=== PATIENT | male | born 1940 | race Caucasian/White ===

== ENCOUNTER 2017-09-25 16:19 | Inpatient (IN) ==
[2017-09-25] MEDS ORDERED: NALOXONE 0.4 MG/ML INJECTION IVP ONE (16:28)
[2017-09-25] MEDS ORDERED: CEFEPIME 1 GM in NS 100 ML IV ONE (16:29)
[2017-09-25] MEDS: SALINE FLUSH 10ml SYRINGE IVF PRN (16:33)
--- NOTE | 2017-09-25 16:53 | Emergency Department Report ---
Altered Mental Status HPI - General Chief Complaint: Altered Mental Status Stated Complaint: Unresponsive Time Seen by Provider: 09/25/17 16:28 Source: patient, family, EMS, RN notes reviewed, old records reviewed Mode of arrival: EMS Limitations: no limitations - History of Present Illness HPI narrative: 77yo man is presented to the ER by EMS for evaluation of AMS. Pt was found down in his bathroom by a neighbor today. Pt was unresponsive, so EMS was called. EMS arrived and found the pt breathing, but unresponsive (even to sternal rub). MD complaint: altered mental status Onset (ago): unknown Severity: severe Consistency of symptoms: constant Context: cancer Treatments prior to arrival: IV fluid - Related Data Home Medications Medication Instructions Recorded Confirmed Amlodipine [Norvasc] 5 mg PO DAILY 09/25/17 09/25/17 Aspirin [Adult Aspirin] 81 mg PO DAILY 09/25/17 09/25/17 Budesonide/Formoterol Fumarate 1 puff INH DAILY 09/25/17 09/25/17 [Symbicort 160-4.5 Mcg Inhaler] Finasteride [Proscar] 5 mg PO DAILY 09/25/17 09/25/17 Tamsulosin [Flomax] 0.4 mg PO HS 09/25/17 09/25/17 Tiotropium Handihaler [Spiriva] 1 cap ORAL INH DAILY 09/25/17 09/25/17 Allergies Allergy/AdvReac Type Severity Reaction Status Date / Time No Known Allergies Allergy Verified 09/25/17 16:53 Review of Systems Limitations: ROS unobtainable due to patient's medical condition PFS Patient Stated Medical History Hypertension Yes Chronic Obstructive Pulmonary Yes Disease (COPD) Other GI Yes: enlarged pancreas Hx Benign Prostatic Yes Hyperplasia Shingles Yes: unknown date Clinic Medical History (Last Updated 09/25/17 @ 18:49 by Clotilde Grover APRN) COPD (chronic obstructive pulmonary disease) (Acute Medical) Hypertension (Acute Medical) 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 *COLONOSCOPY WITH POLYPECTOMY - Social History Smoking status: Current every day smoker second hand exposure: No Substance use type: does not use Alcohol intake: current Alcohol intake frequency: a few times a week Physical Exam - Limitations Limitations: other - General General appearance: obtunded, cachectic - Head Head exam: atraumatic, normocephalic, normal inspection - Eye Eye exam: Present: PERRL, EOMI, scleral icterus, other (pinpoint pupils). Absent: normal appearance - ENT ENT exam: Present: normal exam, normal oropharynx, mucous membranes dry, normal external ear exam - Neck Neck exam: Present: normal inspection, full ROM, trachea midline. Absent: tenderness, lymphadenopathy - Chest Chest inspection: Present: normal inspection, symmetric chest wall rise. Absent : tenderness, rash - Respiratory Respiratory exam: Present: normal lung sounds bilaterally. Absent: respiratory distress, wheezes, stridor, prolonged expiratory phase, crackles - Cardiovascular Cardiovascular exam: Present: regular rate, normal rhythm, normal heart sounds. Absent: rubs, gallop, clicks - Abdominal Exam Abdominal exam: Present: soft, normal bowel sounds. Absent: distention, tenderness, guarding, rebound, rigidity - Extremities Exam Extremities exam: Present: normal inspection, full ROM, normal capillary refill. Absent: tenderness, pedal edema - Skin Skin exam: Present: warm, dry, intact, erythema (Over both knees). Absent: rash - Neurological Exam Neurological exam: Present: CN II-XII intact, reflexes normal. Absent: alert, oriented X3, normal gait - Psychiatric Psychiatric exam: Present: other (Obtunded) Course Course Narrative: While in CT, pt became apneic. ophthalmology technician recognized intracranial bleed. Pt was wheeled back to ER emergently and interventions made to ventilate pt. Pt was breathing at 6-8/min spontaneously. Bipap was placed to provide temporizing measure. Family was consulted to determine intended course of action. Family was leaning towards not intervening, but wanted to think/discuss. After reviewing the films and reading the radiology report, the direness of pts situation was conveyed to pts and family. At that time, it was decided to not intervene further. - Consultations Consultation #1: Hospitalist: Will admit for end-of-life care. Time: 17:52 Vital Signs Temperature 98 F 09/25/17 16:19 Pulse Rate 74 09/25/17 16:19 Respiratory Rate 12 09/25/17 16:19 Blood Pressure 153/88 H 09/25/17 16:19 Pulse Oximetry 96 09/25/17 16:19 Temperature 98.8 F 09/26/17 00:50 Pulse Rate 94 09/26/17 08:00 Respiratory Rate 20 09/26/17 06:28 Blood Pressure 180/95 H 09/26/17 01:00 Pulse Oximetry 94 09/26/17 08:00 Altered Mental Status - MDM Narrative Medical decision making narrative: Pt with intracerebellar hemorrhage with extension into all 4 ventricles. There is evidence of herniation, which correlates with pts presenting PE and deterioration in the ER. Family understands pts status (critical) and prognosis. They do not want heroic efforts or significant interventions. There is not currently a DNR, but has indicated that they would like to allow pt to pass peacefully. - Differential Diagnosis Likely: alcoholic intoxication, altered mental status, delirium, dementia, hypoglycemia, hyponatremia, subarachnoid hemorrhage, sepsis - Medical Records Attestation: I reviewed the patient's medical records. - Lab Data Attestation: I reviewed the patient's lab results. Result diagrams: 09/25/17 16:52 09/25/17 16:52 Lab Results 09/25/17 09/25/17 09/25/17 Range/Units 16:42 16:52 16:52 WBC 17.0 H (4.5-11.0) T/MM3 RBC 4.54 (4.50-5.90) M/MM3 Hgb 14.4 (13.5-17.5) GM/DL Hct 42.6 (41-53) % MCV 93.8 (80-100) UM3 MCH 31.7 (26-34) UUG MCHC 33.8 (31-37) GM/DL RDW Std Deviation 50.5 H (36.9-50.2) FL Plt Count 160 (130-400) T/MM3 MPV 12.3 (9.4-12.4) UM3 Immature Gran % (Auto) Not performed Neut % (Auto) Not performed Lymph % (Auto) Not performed [place] % (Auto) Not performed Eos % (Auto) Not performed Baso % (Auto) Not performed Neut # (Auto) Not performed Lymph # (Auto) Not performed [place] # (Auto) Not performed Eos # (Auto) Not performed Baso # (Auto) Not performed Abs Immat Gran (auto) Not performed Neutrophils % (Manual) 86.0 H (33-66) % Lymphocytes % (Manual) 4.0 L (23-45) % Monocytes % (Manual) 10.0 H (0-9.0) % Neutrophils # (Manual) 14.6 H (1.8-7.7) T/MM3 Lymphocytes # (Manual) 0.7 L (1-4.8) T/MM3 Monocytes # (Manual) 1.7 H (0-0.8) T/MM3 RBC Morph Comment Normal Sample Site L radial ABG pH 7.392 (7.350-7.450) ABG pCO2 38 (34.0-45.0) MMHG ABG pO2 64.6 L (80.0-100.0) MMHG ABG HCO3 23.1 (22.0-26.0) MEQ/L ABG Total CO2 24.2 (23.0-27.0) MEQ/L ABG O2 Saturation 92.2 L (95.0-98.0) % ABG Base Excess -1.6 (-2.0-2.0) MMOL/L O2 Delivery Method Cannula Turbidity < 20 (0-20) Sodium 144 (136-146) MEQ/L Potassium 3.7 (3.6-5) MEQ/L Chloride 107 (98-107) MEQ/L Carbon Dioxide 23 (22-30) MEQ/L Anion Gap 14 (5-15) meq/L BUN 19.0 (9-20) MG/DL Creatinine 0.8 (0.8-1.5) mg/dL Estimated Creat Clear 61 (>50) mL/min GFR Calculation 93 (>60) mL/min BUN/Creatinine Ratio 24 (6-26) RATIO Glucose 223 H (75-110) MG/DL Calculated Osmolality 286 H (261-280) MOSM/KG Calcium 9.4 (8.4-10.2) MG/DL Total Bilirubin 0.90 (0.20-1.30) MG/DL Icterus Index < 2 (0-7) AST 45 (17-59) U/L ALT 33 (1-50) U/L Alkaline Phosphatase 73 (38-126) U/L Troponin I 0.014 (0-0.12) ng/ml Total Protein 7.4 (6.3-8.2) g/dL Albumin 4.4 (3.5-5.0) g/dL Globulin 3.0 (2.4-3.6) G/DL Albumin/Globulin Ratio 1.5 (1.1-2.2) RATIO Plasma Lactate 3.9 H (0.6-2.2) MMOL/L Specimen Hemolysis < 15 (0-25) - Radiology Data Attestation: I reviewed the patient's radiology results. CT Head: FINDINGS: Brain: Mild diffuse bilateral frontal and temporal hyperdense subarachnoid hemorrhage. Mild basilar cistern diffuse hemorrhage. Probable mild bilateral tentorial subdural hemorrhage. Ventricles: Large 6.1 x 3.3 cm hyperdense acute intraparenchymal hemorrhage in the central bilateral cerebellum and vermis with extension into the fourth ventricle, third ventricle, and bilateral occipital horns. This results in moderate downward cerebellar tonsillar herniation and a moderate diffuse hydrocephalus particularly in the temporal horns. Moderate compression of the medulla. Bones/joints: Normal. No acute fracture. Sinuses: Normal as visualized. No acute sinusitis. Mastoid air cells: Normal as visualized. No mastoid effusion. Soft tissues: Normal. Vasculature: Calcific atherosclerosis of the bilateral carotid siphon. IMPRESSION: 1. Large 6.1 x 3.3 cm hyperdense acute intraparenchymal hemorrhage in the central bilateral cerebellum and vermis with extension into the fourth ventricle, third ventricle , and bilateral occipital horns. This results in moderate downward cerebellar tonsillar herniation and a moderate diffuse hydrocephalus particularly in the temporal horns. Moderate compression of the medulla. 2. Mild diffuse bilateral frontal and temporal hyperdense subarachnoid hemorrhage. Mild basilar cistern diffuse hemorrhage. Probable mild bilateral tentorial subdural hemorrhage. CXR: No acute CT pathology. - EKG Data EKG #1 EKG attestation: Yes: I reviewed and interpreted this EKG. EKG shows normal: sinus rhythm, axis, intervals, ST-T waves Rhythm: arrhythmia (Sinus) Disposition Clinical Impression: Cerebellar herniation Cerebellar hemorrhage Qualifiers: Intracerebral hemorrhage etiology: nontraumatic Laterality: unspecified laterality Qualified Code(s): I61.4 - Nontraumatic intracerebral hemorrhage in cerebellum Disposition: [facility] Condition: Critical Time of Disposition: 18:00 - Seen By: physician
[2017-09-25] MEDS ORDERED: NS FLUSH BAG 500ml IV PRN (16:56)
--- NOTE | 2017-09-25 18:52 | History & Physical Report ---
History of Present Illness Date: 09/25/17 Chief complaint: Unresponsive HPI: rAnoldo Louis Jr. is a 77 y/o male with a hx of metastatic carcinoid tumor of the cecum. His oncologist is Dr. Michael Mcallister. He was found down in the bathroom on 09/25/17 with decreased LOC and EMS was activated. He was found by his daughter, unknown down time. He was unresponsive to pain on arrival. CT head revealed significant ICH in all 4 ventricles with herniation. He had an episode of apnea resulting in BiPAP. His HR has been variable, ranging from 68-107. On labs, his WBC was elevated at 17; glucose was 223, lactate was 3.9. CXR was unremarkable. He was started on cefepime in the ED though no obvious source of infection was identified (UA was not obtained, however). The ED physician discussed the ominous findings and family opted for comfort care. 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 *COLONOSCOPY WITH POLYPECTOMY Family History: Unable to Obtain - Social History Smoking status: Former smoker Medications Home Medications Medication Instructions Recorded Confirmed Type Amlodipine [Norvasc] 5 mg PO DAILY 09/25/17 09/25/17 History Aspirin [Adult Aspirin] 81 mg PO DAILY 09/25/17 09/25/17 History Budesonide/Formoterol Fumarate 1 puff INH DAILY 09/25/17 09/25/17 History [Symbicort 160-4.5 Mcg Inhaler] Finasteride [Proscar] 5 mg PO DAILY 09/25/17 09/25/17 History Tamsulosin [Flomax] 0.4 mg PO HS 09/25/17 09/25/17 History Tiotropium Handihaler [Spiriva] 1 cap ORAL INH DAILY 09/25/17 09/25/17 History Allergies Allergy/AdvReac Type Severity Reaction Status Date / Time No Known Allergies Allergy Verified 09/25/17 16:53 Exam Vital Signs: Temperature 98 F 09/25/17 16:19 Pulse Rate 99 09/25/17 17:45 Respiratory Rate 24 09/25/17 17:45 Blood Pressure 162/87 H 09/25/17 17:45 Pulse Oximetry 99 09/25/17 17:45 Height/Weight/BMI: Height 1.78 m Weight 66.3 kg - Constitutional Present: thin, obtunded - Routine HEENT Exam Head: Present: normocephalic Eye: Absent: PERRL, conjunctival icterus, scleral injection ENT: Absent: mucous membranes dry - Routine Neck Exam Present: supple - Routine Respiratory Exam Present: decreased breath sounds - Routine Cardiovascular Exam Present: RRR, S1, S2 - Routine Abdominal Exam Present: soft, non distended. Absent: normoactive bowel sounds (hypoactive) - Routine Extremities Exam Present: no edema, pulses intact - Routine Skin Exam Present: dry, warm, ecchymosis (medial left knee). Absent: mottling - Routine Neurological Exam GCS = 3 Unresponsive to pain Pupils nonreactive, Right pupil 2 mm, left 1 mm - Routine Psychiatric Exam Present: unable to assess Results - Labs CBC & Chem 7: 09/25/17 16:52 09/25/17 16:52 Microbiology Results: Microbiology 09/25/17 16:52 Peripheral/Iv Start Blood Culture - Preliminary Culture Initiated - Results Pending 09/25/17 16:59 Peripheral/Iv Start Blood Culture - Preliminary Culture Initiated - Results Pending - ABG Interpretation ABG results: 09/25/17 16:42 ABG pH 7.392 ABG pCO2 38 ABG pO2 64.6 L ABG HCO3 23.1 ABG Total CO2 24.2 ABG O2 Saturation 92.2 L ABG Base Excess -1.6 Assessment and Plan (1) Cerebellar hemorrhage Current visit: Yes Status: Acute Assessment and Plan: Assessment Large acute intraparenchymal hemorrhage with herniation. Also with SAH, and probable SDH. Acute respiratory failure, requiring BiPAP Leukocytosis, POA Hyperglycemia, POA Elevated lactate, POA Malignant carcinoid tumor of the cecum with metastases to liver and bones HTN COPD Plan Admit, observation status for comfort care measures. Will not investigate elevated lactate further d/t family decision for end-of- life care. Morphine, Ativan, Atropine PRN. Patient's respiratory rate slowed down to 6/min upon arrival to his room, even with BiPAP in place. HR is in the 60s, earlier he was in the 90s. His pupils are unresponsive and unequal. Fear that is imminent. Discussed findings with family and DPOA (daughter). Discussed that BiPAP is not prolonging his life, but decision to remove has not yet been made. Family in agreement with comfort care, stating that this is what Arnoldo would have wanted. Verified DNR order. PCP: Dr. Avila. Resuscitation Status: Do Not Resuscitate - Physician Narrative Physician: Timbo Skelton MD Narrative: Date: 09/25/17 Time: 1945 Have independently interviewed and examined pt. Chart reviewed. Case discussed with ED physician and my [employer]. Care plan developed with my supervision; agree with above. Presents to ED via EMS secondary to being found down in bathroom unresponsive. Evaluated in ED. CT brain showing acute hemorrhage with developing herniation. Prognosis very grim. Family elected against heroic measure, instead wishing to focus on maximizing comfort. Lungs: decreased, upper airway noises CV: regular MSE: unresponsive Plan: OBS for comfort measures - discussed with family that likely terminal event imminent. Will have MS and lorazepam prn symptom control. No blood draws due to comfort measures. Family wishes no resuscitation. Emotional support given to family. Hospital Course Summary Disclaimer: The visit summary below is not to be considered part of the above Progress Note. Hospital Course: 09/25/17 Admit, observation status for comfort care measures. Will not investigate elevated lactate further d/t family decision for end-of- life care. Morphine, Ativan, Atropine PRN. Patient's respiratory rate slowed down to 6/min upon arrival to his room, even with BiPAP in place. HR is in the 60s, earlier he was in the 90s. His pupils are unresponsive and unequal. Fear that is imminent. Discussed findings with family and DPOA (daughter). Discussed that BiPAP is not prolonging his life, but decision to remove has not yet been made. Family in agreement with comfort care, stating that this is what Arnoldo would have wanted. Verified DNR order. PCP: Dr. Avila.
[2017-09-25] MEDS ORDERED: ATROPINE 1% EYE DROPS PO/SL PRN (18:58)
[2017-09-25] MEDS ORDERED: MORPHINE SULFATE 2mg INJECTION IVP PRN (18:58)
[2017-09-26 02:26] VITALS: TEMP 98.8
[2017-09-26 03:30] VITALS: BP 180/95
[2017-09-26] MEDS: MORPHINE SULFATE 2mg INJECTION IVP PRN ×2 (06:28→09:32)
[2017-09-26 06:29] VITALS: RESP 20
[2017-09-26] MEDS: SALINE FLUSH 10ml SYRINGE IVF PRN ×2 (09:33→11:26)
--- NOTE | 2017-09-26 09:46 | Progress Note ---
- Date 09/26/17 Subjective: F/U: Large acute intraparenchymal hemorrhage with herniation. Also with SAH, and probable SDH. Resting in bed. Family at bedside-reports comfortable night. Has had pain this morning but MS and lorazepam helping. No improvement in level of consciousness. Objective Vital signs: Temperature 98.8 F 09/26/17 00:50 Pulse Rate 68 09/26/17 00:50 Respiratory Rate 20 09/26/17 06:28 Blood Pressure 180/95 H 09/26/17 01:00 Pulse Oximetry 99 09/26/17 00:50 Height/Weight/BMI: Height 1.78 m Weight 65.7 kg - Constitutional Present: well nourished, well developed, average body habitus, obtunded - Routine HEENT Exam Head: Present: normocephalic, atraumatic ENT: Present: mucous membranes moist - Routine Respiratory Exam Present: decreased breath sounds. Absent: rales, rhonchi, wheezes, crackles - Routine Cardiovascular Exam Present: RRR, no murmur - Routine Abdominal Exam Present: soft, non distended, non tender. Absent: normoactive bowel sounds ( Decreased) - Routine Extremities Exam Present: no edema. Absent: cyanosis, clubbing - Routine Neurological Exam Unresponsive. Involuntary motor movements. Pupils dilated. - Routine Psychiatric Exam Comments: Unresponsive Results - Labs CBC & Chem 7: 09/25/17 16:52 09/25/17 16:52 Microbiology Results: Microbiology 09/25/17 16:52 Peripheral/Iv Start Blood Culture - Preliminary Culture Initiated - Results Pending 09/25/17 16:59 Peripheral/Iv Start Blood Culture - Preliminary Culture Initiated - Results Pending - ABG Interpretation ABG results: 09/25/17 16:42 ABG pH 7.392 ABG pCO2 38 ABG pO2 64.6 L ABG HCO3 23.1 ABG Total CO2 24.2 ABG O2 Saturation 92.2 L ABG Base Excess -1.6 Assessment and Plan (1) Cerebellar hemorrhage Current visit: Yes Status: Acute Assessment and Plan: Assessment Large acute intraparenchymal hemorrhage with herniation. Also with SAH, and probable SDH. Acute respiratory failure, requiring BiPAP Leukocytosis, POA Hyperglycemia, POA Elevated lactate, POA Malignant carcinoid tumor of the cecum with metastases to liver and bones HTN COPD Plan Consult placed to [facility] for hospice care to maximize comfort and dignity. Prognosis terminal secondary to cerebral hemorrhage. Continue with MS and lorazepam for symptom control. Adjust as needed. Emotional support to family. 1240 Reevaluated patient. [facility] nurse met with family. Patient is appropriate for inpatient hospice care and family agreeable to [facility]. Admission status changed to inpatient to continue comfort care measures. Will continue with BiPAP for support at family request. Morphine adjustments made. With routine oral Roxanol 10mg family reports pt much more comfortable and relaxed. Case discussed with CM, [facility], and family. Resuscitation Status: Do Not Resuscitate - Physician Narrative Physician: Timbo Skelton MD Narrative: Date: 09/26/17 Time: 0942 Hospital Course Summary Disclaimer: The visit summary below is not to be considered part of the above Progress Note. Hospital Course: 09/25/17 Admit, observation status for comfort care measures. Will not investigate elevated lactate further d/t family decision for end-of- life care. Morphine, Ativan, Atropine PRN. Patient's respiratory rate slowed down to 6/min upon arrival to his room, even with BiPAP in place. HR is in the 60s, earlier he was in the 90s. His pupils are unresponsive and unequal. Fear that is imminent. Discussed findings with family and DPOA (daughter). Discussed that BiPAP is not prolonging his life, but decision to remove has not yet been made. Family in agreement with comfort care, stating that this is what Arnoldo would have wanted. Verified DNR order. PCP: Dr. Avila. 09/26/17 Consult placed to [facility] for hospice care to maximize comfort and dignity. Prognosis terminal secondary to cerebral hemorrhage. Continue with MS and lorazepam for symptom control. Adjust as needed. Emotional support to family. 1240 Reevaluated patient. [facility] nurse met with family. Patient is appropriate for inpatient hospice care and family agreeable to [facility]. Admission status changed to inpatient to continue comfort care measures. Will continue with BiPAP for support at family request. Morphine adjustments made. With routine oral Roxanol 10mg family reports pt much more comfortable and relaxed.
[2017-09-26 11:23] VITALS: PULSE 94; O2SAT 94
[2017-09-26] MEDS ORDERED: MORPHINE SULFATE 10mg/0.5ml ORAL LIQ SL PRN (11:46)
[2017-09-26] MEDS ORDERED: Hyoscyamine 0.125mg Sublingual tab SL PRN (11:49)
[2017-09-26] MEDS ORDERED: LORazepam INTENSOL 1mg/0.5ml ORAL LIQUID SL PRN (11:50)
[2017-09-26] MEDS ORDERED: BISACODYL 10 MG SUPPOSITORY RECTALLY PRN (11:51)
[2017-09-26] MEDS ORDERED: ONDANSETRON ODT 4 MG TABLET PO PRN (11:51)
[2017-09-26] MEDS: MORPHINE SULFATE 10mg/0.5ml ORAL LIQ SL SCH ×3 (12:02→16:12)
--- NOTE | 2017-09-26 17:05 | Death Note ---
Providers - Provider Primary care physician: Rod Avila MD Admitting clinician: Timbo Skelton Attending Physician: Timbo Skelton Consults: [facility] Pronouncing clinician: Timbo Skelton Diagnosis - PCOD Cause of : Cerebral hemorrhage - Contributing Factors (1) Cerebellar hemorrhage Status: Acute (2) Acute respiratory failure Status: Acute Summary - Date and Time Date of admission: 09/25/17 1752 Date of : 09/26/17 Time of : 16:40 - Summary Details: 09/25/17 Admit, observation status for comfort care measures. Will not investigate elevated lactate further d/t family decision for end-of- life care. Morphine, Ativan, Atropine PRN. Patient's respiratory rate slowed down to 6/min upon arrival to his room, even with BiPAP in place. HR is in the 60s, earlier he was in the 90s. His pupils are unresponsive and unequal. Fear that is imminent. Discussed findings with family and DPOA (daughter). Discussed that BiPAP is not prolonging his life, but decision to remove has not yet been made. Family in agreement with comfort care, stating that this is what Arnoldo would have wanted. Verified DNR order. PCP: Dr. Avila. 09/26/17 Consult placed to [facility] for hospice care to maximize comfort and dignity. Prognosis terminal secondary to cerebral hemorrhage. Continue with MS and lorazepam for symptom control. Adjust as needed. Emotional support to family. 1240 Reevaluated patient. [facility] nurse met with family. Patient is appropriate for inpatient hospice care and [facility] Admission status changed to inpatient to continue comfort care measures. Will continue with BiPAP for support at family request. Morphine adjustments made. With routine oral Roxanol 10mg, family reports pt much more comfortable and relaxed. 1705 Family members decided to withdraw BiPAP respiratory support - understanding that terminal event will occur shortly thereafter. [facility] nurse notified - did come to be with family. BiPAP removed. Patient passed comfortably at 1640. No code initiated as patient DNR - DNR order written at admission per pt and family request. Patient pronounced by Dr Skelton. Cause of : Large acute intraparenchymal cerebral hemorrhage with herniation. Also with Subarachnoid hemorrhage and probable Subdural hematoma Contributing factors Acute respiratory failure, requiring BiPAP Malignant carcinoid tumor of the cecum with metastases to liver and bones HTN COPD Manner of : Natural - Additional Data Confirmation of as documented by pronouncing clinician: no pulse, no respirations, no heart sounds, pupils fixed and dilated Family: at bedside Additional persons at bedside: photostatic copy maker, other ([facility] nurse) Attending/PCP notified?: Yes Attending physician: Timbo Skelton MD Was code activated?: No (DNR at time of admission) Autopsy requested?: No Hospice patient?: Yes ([facility] ) Attestation Narriative - Attestation Attestation Narrative: 09/26/17 17:13 I have independently examined and pronounced patient. See my progress note for details of the day.
--- NOTE | 2017-09-27 13:05 | XRay Report ---
Indication: AMS PROCEDURE: XR chest 1V: Encounter: Initial Comparison: CT chest dated September 17, 2017 FINDINGS: The lungs are clear. There is no abnormal airspace opacity, pleural effusion or pneumothorax identified. The heart size, pulmonary vasculature and mediastinum are within normal limits. No significant skeletal abnormality is seen. IMPRESSION: No acute cardiopulmonary abnormality. .
--- NOTE | 2017-09-27 13:17 | CT Scan Report ---
Indication: AMS PROCEDURE: CT head/brain wo con: Encounter: Initial Comparison: None Technique: Axial CT images through the head were performed without contrast. Iterative Reconstruction dose reducing technique was utilized. FINDINGS: There is a large amount of sub-arachnoid hemorrhage in the ventricular system. This fills the third and fourth ventricles. This appears to originate from a 6 cm intraparenchymal hemorrhage in the cerebellar vermis with extension into the ventricular system. There is also a moderate to large amount of subarachnoid hemorrhage overlying both frontal and parietal lobes. There may be a small amount of subdural hemorrhage along the tentorium. There is mild ventriculomegaly probably representing an acute obstructive hydrocephalus due to transient territorial herniation. There is also mass effect upon the brainstem due to the large areas of hemorrhage. No significant midline shift. No obvious territorial stroke. No calvarial fracture. 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 Emergent neurosurgical consultation is recommended. There is a preliminary report by [facility] [employer] [employer]. .
== END 2017-09-26 16:40 | disposition expired | DRG 64 ==
LOC: ED 16:19 → EDHOLD 16:19 → MED 19:05
PROVIDERS: ADMIT Hospitalist; ATTEND Hospitalist